=== PATIENT | female | born 1970 | race Caucasian/White ===

== ENCOUNTER 2018-11-04 23:40 | Emergency (ER) | payer MEDICAID ==
[~2018-11-04] VITALS: Ht 154.9 cm; Wt 83.7 kg
[2018-11-04 23:43] VITALS: Ht 154.9 cm; Wt 83.7 kg
[2018-11-05] MEDS ORDERED: ONDANSETRON 4 MG INJ IV STA (01:01)
[2018-11-05] MEDS ORDERED: SOD CHLORIDE 0.9% 1,000 ML IV STA (01:01)
[2018-11-05] MEDS ORDERED: KETOROLAC 15 MG INJ IV STA (01:01)
[2018-11-05] MEDS ORDERED: METOCLOPRAMIDE 10 MG INJ IV STA (02:03)
[2018-11-05] MEDS ORDERED: LIDOCAINE/MYLANTA 40 ML BTL PO STA (02:03)
[2018-11-05] MEDS ORDERED: FAMOTIDINE 20 MG TAB PO STA (02:03)
[2018-11-05 02:16] VITALS: BP 106/63; PULSE 95; RESP 15
== END 2018-11-05 02:26 | disposition home or self-care (01) ==
LOC: E/R 23:40
DX: R10.13 Epigastric pain (principal)
CPT/HCPCS: 36415; 76705; 80053; 83690; 84703; 85025; 93005; 96361; 96374; 96375; J1885; J2405; J2765; J7030; Z7502; Z7610